=== PATIENT | female | born 1985 | race American Indian/Alaskan Native ===

== ENCOUNTER 2020-03-13 07:46 | Emergency (ER) | payer OTHER ==
[2020-03-13 07:57] VITALS: BP 144/75
--- NOTE | 2020-03-13 08:32 | Emergency Department Report ---
ED General Adult HPI - General Chief complaint: Dental/Oral Stated complaint: WEAKNESS LEFT SIDE OF FACE Time Seen by Provider: 03/13/20 08:03 Source: patient Mode of arrival: Ambulatory Limitations: No Limitations - History of Present Illness Initial comments: 34-year-old F [place] female presents emergency department complaining of a 2 to 3-day history of unilateral facial weakness of an unknown etiology. Reports no fever, chills, sweats no chest pain or trauma. He reports no blurred vision no memory issues no speech issues. No dizziness no tinnitus no concentration issues no headaches. Reports no vertigo Radiation: non-radiation Worsens with: none Associated Symptoms: denies: cough, diaphoresis, loss of appetite, malaise, nausea/vomiting, shortness of breath, syncope, weakness - Related Data Previous Rx's Medication Instructions Recorded Last Taken Type Valacyclovir HCl [Valacyclovir] 1,000 mg PO DAILY #21 tablet 03/13/20 Unknown Rx predniSONE [Deltasone] 50 mg PO QDAY #5 tab 03/13/20 Unknown Rx Allergies Allergy/AdvReac Type Severity Reaction Status Date / Time No Known Allergies Allergy Unverified 03/13/20 07:55 ED Review of Systems ROS: Stated complaint: WEAKNESS LEFT SIDE OF FACE Other details as noted in HPI Comment: All other systems reviewed and negative ED Past Medical Hx - Past Medical History Previous Medical History?: No - Surgical History Past Surgical History?: Yes Additional Surgical History: C section - Social History Smoking Status: Never Smoker Substance Use Type: None - Medications Home Medications: Home Medications Medication Instructions Recorded Confirmed Last Taken Type Valacyclovir HCl [Valacyclovir] 1,000 mg PO DAILY #21 tablet 03/13/20 Unknown Rx predniSONE [Deltasone] 50 mg PO QDAY #5 tab 03/13/20 Unknown Rx ED Physical Exam - General Limitations: No Limitations General appearance: alert, in no apparent distress - Head Head exam: Present: atraumatic, normocephalic, other - Expanded Head Exam Expanded 1 - Weakness to this portion of the face - Eye Eye exam: Present: normal appearance, PERRL, EOMI, other (Slightly lower lobe on examination) Pupils: Present: normal accommodation - ENT ENT exam: Present: normal exam, normal orophraynx, mucous membranes moist, TM's normal bilaterally - Neck Neck exam: Present: normal inspection, full ROM - Respiratory Respiratory exam: Present: normal lung sounds bilaterally. Absent: respiratory distress, wheezes, rales, chest wall tenderness, accessory muscle use - Cardiovascular Cardiovascular Exam: Present: regular rate, normal rhythm. Absent: systolic murmur, diastolic murmur, rubs, gallop - GI/Abdominal GI/Abdominal exam: Present: soft, normal bowel sounds. Absent: tenderness, guarding, hyperactive bowel sounds, hypoactive bowel sounds - Extremities Exam Extremities exam: Present: normal inspection, full ROM, normal capillary refill, other (Strength is equal and 5 5) - Back Exam Back exam: Present: normal inspection - Neurological Exam Neurological exam: Present: alert, oriented X3, normal gait, motor sensory deficit, reflexes normal. Absent: CN II-XII intact (Cranial nerve VII appears to be affected involving the left side of the face unable to wrinkle forehead unable to puff cheek unable to close left eye tight and harbor a smile tongue appears to be unaffected) - Psychiatric Psychiatric exam: Present: normal affect, normal mood. Absent: anxious, flat affect - Skin Skin exam: Present: warm, dry, intact, normal color. 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 Advised on primary care doctor follow-up within the next week and follow-up with neurologist if symptoms continue to persist after 2 weeks and advised her that recovery can take longer. Since it is within 72 hours of onset will also give prednisone daily for 5 days Critical care attestation.: If time is entered above; I have spent that time in minutes in the direct care of this critically ill patient, excluding procedure time. ED Disposition Clinical Impression: Navas's palsy Disposition: DC-01 TO HOME OR SELFCARE Is pt being admited?: No Does the pt Need Aspirin: No Condition: Stable Instructions: Navas Palsy (ED) Additional Instructions: Also recommended that you get artificial tears [id number] to assist with the strong likelihood of dry eye given the issue with the eye closure Prescriptions: predniSONE [Deltasone] 50 mg PO QDAY #5 tab Valacyclovir HCl [Valacyclovir] 1,000 mg PO DAILY #21 tablet
== END 2020-03-13 09:08 | disposition home or self-care (01) ==
LOC: ED 07:46
DX: G51.0 Bell's palsy (principal); Z79.899 Other long term (current) drug therapy
CPT/HCPCS: 99281

== ENCOUNTER 2020-12-21 11:27 | Emergency (ER) | payer OTHER ==
[2020-12-21 12:36] VITALS: BP 127/67
== END 2020-12-21 15:02 | disposition left against medical advice (07) ==
LOC: ED 11:27
DX: R10.9 Unspecified abdominal pain (principal); R11.2 Nausea with vomiting, unspecified; Z53.21 Procedure and treatment not carried out due to patient leaving prior to being seen by health care provider